=== PATIENT | female | born 1990 | race Caucasian/White ===

== ENCOUNTER 2020-10-29 19:44 | Emergency (ER) | payer OTHER ==
[~2020-10-29] VITALS: Ht 167.6 cm; Wt 82.1 kg
[2020-10-29 19:54] VITALS: BP 143/104
--- NOTE | 2020-10-29 20:09 | NUR ---
Dr. Xie examining patient.
--- NOTE | 2020-10-29 20:19 | NUR ---
X-Ray at bedside.
--- NOTE | 2020-10-29 21:10 | NUR ---
Patient assessment completed by JESSENIA, no nursing interventions required at this time.
[2020-10-29 21:19] VITALS: BP 143/104
--- NOTE | 2020-10-29 21:19 | NUR ---
Patient discharged with v/s stable. Written and verbal after care instructions given and explained. Patient verbalized understanding. Ambulatory with steady gait. All questions addressed prior to discharge. Advised to follow up with PMD.
== END 2020-10-29 21:19 | disposition home or self-care (01) ==
LOC: MED 19:44
DX: S93.402A Sprain of unspecified ligament of left ankle, initial encounter (principal); X58.XXXA Exposure to other specified factors, initial encounter; Y93.89 Activity, other specified; Y92.89 Other specified places as the place of occurrence of the external cause; Y99.8 Other external cause status
CPT/HCPCS: 73610; 99283